=== PATIENT | female | born 2005 | race Caucasian/White ===

== ENCOUNTER 2025-06-18 10:44 | Emergency (ER) | payer MEDICAID ==
[~2025-06-18] VITALS: Ht 165.1 cm; Wt 82.0 kg
[2025-06-18 10:51] VITALS: O2SAT 100
[2025-06-18 12:04] LABS: CLARITY URINE CLEAR (CLEAR); COLOR URINE YELLOW (YELLOW); GLUCOSE URINE NEGATIVE (NEGATIVE); KETONES URINE NEGATIVE (NEGATIVE); LEUKOCYTE ESTERASE URINE TRACE (NEGATIVE); NITRITE URINE NEGATIVE (NEGATIVE); OCCULT BLOOD URINE TRACE (NEGATIVE); PH URINE 7.5 (4.5-8.0); PROTEIN URINE NEGATIVE (NEGATIVE); SPECIFIC GRAVITY URINE 1.009 (1.005-1.030); UROBILINOGEN URINE 0.2 E.U./dL (0.2-1.0)
[2025-06-18 12:14] LABS: BACTERIA URINE 1+; SQUAMOUS EPITHELIAL CELL URINE 2+ /lpf (RARE/1+); YEAST URINE NONE SEEN
[2025-06-18] MEDS: SODIUM CHLORIDE 0.9% 1,000 ML IV ONE (12:30)
[2025-06-18 13:14] LABS: BASOPHILS % 0.6 % (0.0-2.0); EOSINOPHILS % 0.3 % (0.0-5.0); HEMATOCRIT. 37.1 % (36.0-48.0); HEMOGLOBIN. 12.3 g/dL (12.0-16.0); LYMPHOCYTES % 26.5 % (20.0-50.0); MEAN PLATELET VOLUME 6.9 fl (7.4-10.4); MONOCYTES % 3.9 % (2.0-8.0); NEUTROPHILS % 68.7 % (40.0-76.0); PLATELET 347 x1000/uL (130-400); RED BLOOD CELL COUNT 4.28 mill/uL (4.2-5.4); RED CELL DISTRIBUTION WIDTH 14.1 % (11.6-14.6)
[2025-06-18] MEDS: TAMSULOSIN HCL 0.4MG SR CAPSULE PO ONE (13:16)
[2025-06-18] MEDS: KETOROLAC 30MG/ML VIAL IM ONE (13:16)
[2025-06-18 13:40] LABS: CREATININE 0.6 mg/dL (0.6-1.0); UREA NITROGEN BLOOD 6 mg/dL (9-23)
[2025-06-18] MEDS ORDERED: SULF1TAB48 MT (14:10)
[2025-06-18] MEDS: SULFAMETHOXAZOLE/TRIMETHOPRIM 800/160MG TABLET PO ONE (14:16)
[2025-06-18 14:30] VITALS: BP 116/70; PULSE 88; RESP 15; TEMP 36.6; O2SAT 100
== END 2025-06-18 14:32 | disposition home or self-care (01) ==
LOC: ER 10:44
DX: N39.0 Urinary tract infection, site not specified (principal); Z88.0 Allergy status to penicillin
CPT/HCPCS: 80048; 81003; 81025; 85025; 36415; 96360; 96361; 96372; 99283; J1885; J7030; Z7610 ×2